=== PATIENT | female | born 1995 | race Two or more races ===

== ENCOUNTER 2017-04-22 21:46 | Emergency (ER) | payer SELFPAY ==
[~2017-04-22] VITALS: Ht 144.8 cm; Wt 40.8 kg
[2017-04-22 23:23] LABS: URINE SOURCE CLEAN CATCH
[2017-04-22 23:27] LABS: URINE APPEARANCE CLEAR; URINE BILIRUBIN NEG (NEG); URINE BLOOD NEG (NEG); URINE COLOR YELLOW; URINE GLUCOSE NEG (NEG); URINE KETONE NEG (NEG); URINE LEUKOCYTE ESTERASE NEG (NEG); URINE NITRATE NEG (NEG); URINE PH 7.5 (5-8); URINE PROTEIN NEG (NEG); URINE SPECIFIC GRAVITY 1.007 (1.003-1.035); URINE UROBILINOGEN 0.2 MG/DL (NEG)
[2017-04-22 23:31] LABS: CULTURE INDICATED? NO
== END 2017-04-23 00:35 | disposition home or self-care (01) ==
LOC: CED 21:46
PROVIDERS: Emergency Medicine
DX: O99.89 Other specified diseases and conditions complicating pregnancy, childbirth and the puerperium (principal); M54.5 Low back pain; Z3A.22 22 weeks gestation of pregnancy
CPT/HCPCS: 81003; 99284